=== PATIENT | male | born 2005 | race Caucasian/White ===

== ENCOUNTER 2025-05-04 12:54 | Emergency (ER) | payer OTHER ==
[~2025-05-04] VITALS: Ht 175.3 cm; Wt 81.0 kg
[2025-05-04] MEDS: HALOPERIDOL LACTATE 5MG/ML VIAL IM ONE ×4 (13:49→18:37)
[2025-05-04] MEDS: OLANZAPINE 10 MG/VIAL IM ONE (13:49)
[2025-05-04 15:28] LABS: BASOPHILS % 0.4 % (0.0-2.0); EOSINOPHILS % 4.0 % (0.0-5.0); HEMATOCRIT. 39.4 % (42.0-52.0); HEMOGLOBIN. 13.9 g/dL (14.0-18.0); LYMPHOCYTES % 34.3 % (20.0-50.0); MEAN PLATELET VOLUME 7.8 fl (7.4-10.4); MONOCYTES % 6.8 % (2.0-8.0); NEUTROPHILS % 54.5 % (40.0-76.0); PLATELET 286 x1000/uL (130-400); RED BLOOD CELL COUNT 4.45 mill/uL (4.7-6.1); RED CELL DISTRIBUTION WIDTH 12.0 % (11.6-14.6)
[2025-05-04 15:43] LABS: CREATININE 0.9 mg/dL (0.6-1.3); UREA NITROGEN BLOOD 9 mg/dL (9-23)
[2025-05-04 15:44] LABS: ETHANOL BLOOD < 10 mg/dL (<10)
[2025-05-04 15:45] LABS: ASPARTATE AMINOTRANSFERASE 13 IU/L (<34)
[2025-05-04 15:46] LABS: BILIRUBIN DIRECT 0.1 mg/dL (<=3.0); BILIRUBIN TOTAL 0.3 mg/dL (0.1-1.0); PROTEIN TOTAL 6.6 g/dL (6.0-8.3)
[2025-05-04 17:40] VITALS: O2SAT 99
[2025-05-04] MEDS: HALOPERIDOL LACTATE 5MG/ML VIAL IM SCH (18:00)
[2025-05-04 18:58] LABS: *AMPHETAMINES SCREEN URINE NEGATIVE (NEGATIVE); *BARBITURATES SCREEN URINE NEGATIVE (NEGATIVE); *BENZODIAZEPINES SCREEN URINE NEGATIVE (NEGATIVE); *COCAINE SCREEN URINE NEGATIVE (NEGATIVE); CANNABINOID URINE SCREEN NEGATIVE (NEGATIVE); ECSTASY MDMA SCREEN URINE NEGATIVE (NEGATIVE); METHADONE URINE SCREEN NEGATIVE (NEGATIVE); OPIATES URINE SCREEN NEGATIVE (NEGATIVE); PHENCYCLIDINE URINE SCREEN NEGATIVE (NEGATIVE)
[2025-05-05] MEDS: ZIPRASIDONE MESYLATE 20MG/VIAL IM ONE (01:19)
[2025-05-05] MEDS: NICOTINE 14MG PATCH TD SCH (01:24)
[2025-05-05] MEDS: OLANZAPINE 5MG TABLET ODT PO SCH (12:17)
[2025-05-05] MEDS: HYDROXYZINE 25MG TABLET PO PRN (12:17)
[2025-05-05 12:25] VITALS: BP 136/84; PULSE 69; RESP 18; TEMP 36.9; O2SAT 100
[2025-05-06] MEDS ORDERED: NICOTINE 14MG PATCH TD SCH (09:00)
== END 2025-05-05 12:35 | disposition short-term general hospital (02) ==
LOC: ER 12:54
DX: F20.9 Schizophrenia, unspecified (principal); Z78.1 Physical restraint status; Z20.822 Contact with and (suspected) exposure to COVID-19; Z79.899 Other long term (current) drug therapy
CPT/HCPCS: 80076; 80305; 80048; 80307; 80329; 80320; 85025; 36415; 96372 ×2; 99285; 87426; 73130; J3490; J1630; J3486; G0480